=== PATIENT | female | born 1950 | race Caucasian/White ===

== ENCOUNTER 2018-06-13 06:07 | Outpatient (CLI) | payer MEDICARE | END 2018-06-13 06:08 | disposition home or self-care (01) | LOC: CARDIO 06:07 ==

== ENCOUNTER 2018-06-16 06:15 | Day surgery (SDC) | payer MEDICARE ==
[2018-06-15 09:53] VITALS: BMI 37.8
[2018-06-16] MEDS ORDERED: Lidocaine PF 2% (5 ml) Inj (For Cardiac Arrhy) ONE (06:58)
[2018-06-16] MEDS ORDERED: Iodixanol 320 MG/ML 200 ML BOTTLE IV ONE (06:59)
[2018-06-16] MEDS ORDERED: Iodixanol 320 MG/ML 100 ML BOTTLE IV ONE (06:59)
[2018-06-16 07:05] LABS: BASO # 0.05 K/mm3 (0.0-2.0); BASO % 0.5 % (0.0-3.0); EOS # 0.3 (0.0-0.7); EOS % 3.2 % (1.5-5.0); HEMOGLOBIN 10.9 g/dL (12.0-16.0); LYMPH # 5.5 (1.2-3.4); MEAN CELL VOLUME 88.5 fl (80.0-105.0); MEAN CORPUSCULAR HEMOGLOBIN 28.6 pg (25.0-35.0); MEAN CORPUSCULAR HGB CONC 32.3 g/dl (31.0-37.0); MEAN PLATELET VOLUME 11.9 fl (7.0-11.0); MONO # 0.9 (0.1-0.6); MONO % 8.1 % (1.0-6.0); RBC 3.81 10^6/uL (3.5-6.1); RED CELL DISTRIBUTION WIDTH 14.7 % (11.5-14.5); WHITE BLOOD COUNT 10.6 10^3/uL (4.5-11.0)
[2018-06-16 07:13] VITALS: RESP 16; TEMP 98.3
[2018-06-16 07:16] LABS: PARTIAL THROMBOPLASTIN TIME 35.5 Seconds (26.9-38.3); PROTHROMBIN TIME 11.3 SECONDS (9.4-12.5)
[2018-06-16 07:27] LABS: BLOOD UREA NITROGEN 32 mg/dL (7-21); CALCIUM 9.1 mg/dL (8.4-10.5); GFR NON-AFRICAN AMERICAN 50; HDL CHOLESTEROL 57 mg/dL (29-60)
[2018-06-16 07:38] LABS: LDL CHOLESTEROL 83 mg/dL (0-129)
[2018-06-16] MEDS ORDERED: Midazolam 2 MG/2 ML VIAL ONE ×2 (07:51→07:55)
[2018-06-16] MEDS ORDERED: Sodium Chloride 0.9% 1,000 ML IV SCH (08:45)
--- NOTE | 2018-06-16 09:34 | CARDCATH ---
PROCEDURE DATE: 06/16/2018 HISTORY: The patient is a 67-year-old woman with hypertension, diabetes mellitus and hypercholesterolemia with documented coronary artery disease in the past who presents with an abnormal stress test. Because of this, cardiac catheterization was recommended. PROCEDURE: Left heart catheterization with coronary arteriography, left ventriculogram, supra-aortic valvular injection were performed. The right femoral artery was cannulated with a 6-[place] sheath. There were no complications. I performed moderate sedation, which included the presence of an independent trained observer that assisted in monitoring the patient's level of consciousness and physiologic status. After administration of Versed and fentanyl, my intra service time was 15 minutes. FINDINGS: On catheterization revealed a left ventricle that contracted normally. Estimated ejection fraction is 60%. The coronary anatomy revealed a right-dominant circulation. The RCA was a dominant vessel and revealed intimal irregularities without critical lesions. The left main artery was unremarkable. The LAD revealed a mid calcified coronary lesion of approximately 50% to 60%. The circumflex and obtuse marginal branches revealed intimal irregularities without significant stenosis. Supra-aortic valvular injection revealed no aortic insufficiency. The patient tolerated the procedure well. AngioSeal was used to close the femoral artery site. SUMMARY: The procedure revealed single-vessel CAD with a 50% to 60% calcified lesion in the mid LAD. LV function is normal. Given these findings, there are no cardiac contraindications to her planned foot surgery. I have discussed in detail with the patient, the patient's and son about her need for cardiac risk reduction program including weight loss, change in diet and exercise. Alli Velazquez MD
[2018-06-16 12:01] VITALS: O2SAT 100
[2018-06-16 13:50] VITALS: BP 127/61; PULSE 66
== END 2018-06-16 13:45 | disposition home or self-care (01) ==
LOC: CATH 06:15
PROVIDERS: ATTEND Internal Medicine Cardiovascular Disease
DX: I25.10 Atherosclerotic heart disease of native coronary artery without angina pectoris (principal); I10 Essential (primary) hypertension; E11.9 Type 2 diabetes mellitus without complications; E78.00 Pure hypercholesterolemia, unspecified; Z79.4 Long term (current) use of insulin
CPT/HCPCS: 36415; 80048; 80061; 85025; 85610; 85730; 86850; 86900; 93458; 99152; C1760; C1769; C2629; J1644; J2250; J3010; J7030; J7040; Q9966